=== PATIENT | female | born 1990 | race Caucasian/White ===

== ENCOUNTER → 2018-01-01 | Outpatient (CLI) | payer OTHER ==
--- NOTE | 2018-01-01 17:40 | 2DMMODE ---
[place] [address] 2 D/M-MODE ECHOCARDIOGRAM Name: DAMIONJEANCARLOS R Room: [facility]#: [id number] Admission: 01/01/18 Attend Phys: Physician not on s Discharge: Date of : 89 Date of Service: 01/01/18 1740 Report #: [id number] THIS REPORT FOR: //name// APPROVED REPORT Study performed: 01/01/2018 08:04:20 EXAM: Comprehensive 2D, Doppler, and color-flow Echocardiogram Patient Location: Out-Patient Status: routine BSA: 1.53 HR: 66 bpm BP: 115/68 mmHg Other Information Study Quality: Good Indications Chest Pain Rule out endocarditis 2D Dimensions LVEF(%): 65.39 (>50%) IVSd: 7.77 (7-11mm) LVOT Diam: 17.37 (18-24mm) LVDd: 42.89 mm PWd: 6.49 (7-11mm) Ascending Ao: 20.15 (22-36mm) LVDs: 27.62 (25-40mm) Aortic Root: 20.09 mm Ervin's LVEF: 65.39 % Volumes Left Atrial Volume (Systole) LA ESV Index: 12.90 mL/m2 Aortic Valve AoV Peak Flaquito.: 1.25 m/s AO Peak Gr.: 6.22 mmHg LVOT Max P.34 mmHg AO Mean Gr.: 3.44 mmHg LVOT Mean P.63 mmHg LVOT Max V: 0.91 m/s AO V2 VTI: 24.48 cm LVOT Mean V: 0.58 m/s MAYURI (VTI): 1.94 cm2 LVOT V1 VTI: 20.04 cm Mitral Valve E/A Ratio: 2.29 [place] [address] 2 D/M-MODE ECHOCARDIOGRAM Name: JEANCARLOS BRUNO Room: [facility]#: [id number] Admission: 01/01/18 Attend Phys: Physician not on s Discharge: Date of : 89 Date of Service: 01/01/18 1740 Report #: [id number] MV Decel. Time: 184.40 ms MV E Max Flaquito.: 1.18 m/s MV PHT: 53.48 ms MVA (PHT): 4.11 cm2 TDI E/Lateral E': 6.21 E/Medial E': 6.56 Medial E' Flaquito.: 0.18 m/s Lateral E' Flaquito.: 0.19 m/s Pulmonary Valve PV Peak Flaquito.: 1.05 m/s PV Peak Gr.: 4.42 mmHg Tricuspid Valve TR Peak Gr.: 16.56 mmHg RVSP: 21.56 mmHg Left Ventricle The left ventricle is normal size. There is normal LV segmental wall motion. There is normal left ventricular wall thickness. Left ventricular systolic function is normal. The left ventricular ejection fraction is within the normal range. LVEF is 55-60%. The left ventricular diastolic function is normal. Right Ventricle The right ventricle is normal size. The right ventricular systolic function is normal. Atria The left atrium size is normal. The right atrium size is normal. Aortic Valve The aortic valve is normal in structure. No aortic regurgitation is present. There is no aortic valvular stenosis. Mitral Valve The mitral valve is normal in structure. There is no mitral valve regurgitation noted. No evidence of mitral valve stenosis. Tricuspid Valve The tricuspid valve is normal in structure. Mild tricuspid regurgitation. The RVSP is __21.6 mmHg. Pulmonic Valve The pulmonary valve is normal in structure. There is no pulmonic [place] [address] 2 D/M-MODE ECHOCARDIOGRAM Name: JEANCARLOS BRUNO [id number] Admission: 01/01/18 Attend Phys: Physician not on s Discharge: Date of : 89 Date of Service: 01/01/18 1740 Report #: [id number] Great Vessels The aortic root is normal in size. IVC is normal in size and collapses with >50% inspiration Pericardium There is no pericardial effusion. <Conclusion> The left ventricle is normal size. There is normal left ventricular wall thickness. Left ventricular systolic function is normal. The left ventricular ejection fraction is within the normal range. LVEF is 55-60%. The left ventricular diastolic function is normal. The right ventricle is normal size. The left atrium size is normal. The aortic valve is normal in structure. The mitral valve is normal in structure. Mild tricuspid regurgitation. The RVSP is __21.6 mmHg. The tricuspid valve is normal in structure. IVC is normal in size and collapses with >50% inspiration There is no pericardial effusion. There is normal LV segmental wall motion. <ELECTRONICALLY SIGNED> By: Curt Patino MD, FACC 01/01/181739 [id number] Curt Patino MD, FACC /INF
== END ==
LOC: M.CRD 07:43
DX: I07.1 Rheumatic tricuspid insufficiency (principal)